=== PATIENT | female | born 1930 | race Caucasian/White ===

== ENCOUNTER 2016-10-11 16:39 | Inpatient (IN) | payer MEDICARE, MEDICAID ==
[~2016-10-11] VITALS: Ht 165.1 cm; Wt 76.0 kg
--- NOTE | ~2016-10-11 | ECH ---
Transthoracic Echocardiography Report (TTE) Demographics Patient Name ARMINDA ALONSO Date of Study 10/13/2016 Patient Number [id number] Visit Number [id number] Date of 1930 Room Number 523 Accession Number [id number] Gender Female Age 86 year(s) Referring Yoko Gonzalez Habilitation Training Specialist Clarissa Rivera [facility] Physician Physician Interpreting King Robert Waldrop MD City Controller Physician Supervising Ordering Physician Yoko Gonzalez MD/P Nurse Stress Manager Chemistry Conclusions Summary Technically fair exam. The estimated left ventricular ejection fraction is 60-65%. Moderate left ventricular hypertrophy. Normal right ventricle structure and function. The left atrium is severely dilated by LA volume index measurement. There is no evidence of patent foramen ovale or atrial septal defect by color Doppler. The interatrial septum appears mildly aneurysmal. Moderate mitral valve stenosis. The mean gradient is 9 mmHg. Trivial mitral regurgitation by color Doppler. Mild tricuspid regurgitation by color Doppler. Estimated pulmonary pressures within normal range. Trivial pulmonic valve regurgitation by color Doppler. Procedure Type of Study TTE procedure:Echo Complete SF. Procedure Date Date: 10/13/2016 Start: 03:20 PM Technical Quality: Fair due to body habitus. Indications:Congestive heart failure, Atrial fibrillation and pre surgical clearance. Additional Indications:evaluate pulmonary hypertension Appropriate Use Criteria: 9 Height: 65 inches Weight: 162 pounds BSA: 1.81 m Rhythm: Atrial fibrillation HR: 73 bpm BP: 130/56 mmHg M-Mode/2D Measurements LV Diastolic Dimension: 4.29 cm LV Systolic Dimension: 2.3 cm LV Septum Diastolic: 1.42 cm LV PW Diastolic: 1.39 cm AO Root Dimension: 2.63 cm Cardiac Output: 5.12 l/min LA Dimension: 5.11 cm Cardiac Index: 2.83 l/min*m LA volume index: 61 ml/m LVOT: 1.83 cm RV Base: 2.97 cm LVOT VTI: 26.68 cm RV Length: 7.2 cm LV Stroke volume: 70.14 ml TAPSE: 2.1 cm LV Stroke volume index: 38.75 ml/m TDI-S': 10 cm/s Doppler Measurements AV Peak Velocity: 1.72 m/s MV Peak E-Wave: 2.15 m/s AV Peak Gradient: 11.83 mmHg MV Peak A-Wave: 2.12 m/s AV Mean Gradient: 7.28 mmHg MV E/A Ratio: 1.02 LVOT Peak Velocity: 1.22 m/s MV P1/2t: 98.8 msec AV Area (Continuity):1.68 cm TR Velocity:2.66 m/s MV Deceleration Time: 356.4 msec TR Gradient:28.22 mmHg MV Area (PHT): 2.23 cm Estimated RAP:5 mmHg PV Peak Velocity: 1.12 m/s Estimated RVSP: 33 mmHg PV Peak Gradient: 5.06 mmHg Estimated PASP: 33.22 mmHg RA Area: 14.39 cm Findings Left Ventricle The left ventricle is normal in size . Moderate left ventricular hypertrophy. Diastolic function indeterminate due to patient's arrhythmia. Right Ventricle Normal right ventricle structure and function. Left Atrium The left atrium is severely dilated by LA volume index measurement. There is no evidence of patent foramen ovale or atrial septal defect by color Doppler. The interatrial septum appears mildly aneurysmal. Right Atrium Normal right atrial size. Mitral Valve Moderate mitral valve stenosis. The mean gradient is 9 mmHg. Trivial mitral regurgitation by color Doppler. Aortic Valve The aortic valve is mildly sclerotic. Tricuspid Valve Normal appearing tricuspid valve. Mild tricuspid regurgitation by color Doppler. Estimated pulmonary pressures within normal range. Pulmonic Valve Normal pulmonic valve structure and function. Trivial pulmonic valve regurgitation by color Doppler. Pericardial Effusion No evidence of pericardial effusion. Miscellaneous Visualized portions of the aortic root and ascending aorta appear normal in size. Pleural Effusion No evidence of pleural effusion. Signature
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
--- NOTE | 2016-10-19 10:19 | HP ---
ADMIT: 10/11/2016 RM/LOC: 523 [facility] MR#: [id number] [address] [address] [place] [address] History and Physical SEX: F AGE: 86 : 1930 DATE OF SERVICE: ADDENDUM: MEDICATIONS: 1. Tylenol 325 two tabs every 4 hours as needed for pain. 2. Advair Diskus 2 times a day. 3. Amlodipine 10 mg at night. 4. Artificial Tears every 6 hours as needed. 5. Ativan 0.5 mg b.i.d. 6. Clotrimazole-betamethasone lotion 1%/0.05% apply to the ears bilaterally at bedtime every Sunday, Sunday, Sunday. 7. Coumadin 3 mg tablets Sunday, Sunday, Sunday, , Sunday, Sunday. 8. Escitalopram 20 mg a.m. 9. Fentanyl patch 75 mcg an hour one patch every 72 hours for pain. 10.Furosemide 40 mg q.a.m. 11.Guaifenesin ER tablet extended release 12-hour, 600 mg two times a day. 12.Icy Hot for breakthrough pain b.i.d. p.r.n. 13.Lamotrigine 50 mg at bedtime. 14.Levetiracetam 500 mg one tablet two times a day for epilepsy. 15.Lorazepam 0.5 mg q.12 hours as needed. 16.Maalox 30 mL every 12 hours as needed. 17.Metoprolol 25 mg b.i.d. 18.Miconazole nitrate cream 2% for rash under both breasts given today. 19.Milk of magnesia 30 mL as needed every 24 hours. 20.MiraLax 17 g in the morning. 21.Nitroglycerin patch 24 hours, apply one patch in the morning for heart failure. 22.Nitroglycerin tab 0.4 mg sublingually every 5 minutes as needed for chest pain. ADMIT: 10/11/2016 RM/LOC: 523 [facility] MR#: [id number] [address] [address] ALONSO, [place] [address] History and Physical SEX: F AGE: 86 : 1930 23.Nystatin powder every 12 hours for breast rash. 24.Oxycodone/acetaminophen tablets 5/325 one tablet four times a day. 25.Potassium chloride extended release 10 mEq in the morning. 26.PreserVision Lutein capsule one capsule by mouth two times a day. 27.Promethazine HCL 6.25/5 mL, 10 mL every 6 hours as needed for cough. 28.Ranitidine 150 mg one tablet by mouth two times a day. 29.Restasis drops in both eyes two times a day. 30.Senna one tab two times a day. 31.Simvastatin 10 mg at bedtime. 32.Thera-M one tablet in the morning. 33.Vaseline gel to nostrils q.12 hours as needed for dry nares. 34.Voltaren gel transdermally four times a day for pain. Davina Allen MD Resident / Mark Babcock MD / marco JOB #: [id number] CC: Mark Babcock, Attending Physician Mark Babcock, Family Physician
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
[2016-10-20] MEDS ORDERED: COUMADIN DPS3 MG PO (15:37)
[2016-10-20] MEDS ORDERED: ATIVAN-DPS0.5 MG PO (15:37)
[2016-10-20] MEDS ORDERED: LASIX DPS40 MG PO (15:38)
[2016-10-20] MEDS ORDERED: LEXAPRO DPS20 MG PO (15:38)
[2016-10-20] MEDS ORDERED: LOPRESSOR DPS50 MG PO (15:38)
[2016-10-20] MEDS ORDERED: MICRO-K DPS10 MEQ PO (15:38)
[2016-10-20] MEDS ORDERED: LAMICTAL DPS25 MG PO (15:38)
[2016-10-20] MEDS ORDERED: KEPPRA DPS500 MG PO (15:38)
[2016-10-20] MEDS ORDERED: MUCINEX600 MG PO (15:39)
[2016-10-20] MEDS ORDERED: MIRALAX PACKET17 GM PO (15:39)
[2016-10-20] MEDS ORDERED: PERCOCET 5 DPS1 TAB PO (15:39)
[2016-10-20] MEDS ORDERED: PEPCID DPS20 MG PO (15:39)
[2016-10-20] MEDS ORDERED: DULERA 200/58.8 GM IH (15:40)
[2016-10-20] MEDS ORDERED: ZOCOR DPS10 MG PO (15:40)
[2016-10-20] MEDS ORDERED: DUONEB DPS3 ML IH (15:40)
[2016-10-20] MEDS ORDERED: THERAPEUTIC MUL1 TA1 PO (15:40)
[2016-10-20] MEDS ORDERED: RESTASIS1 EACH OU (15:40)
[2016-10-20] MEDS ORDERED: DURAGESIC DPS100 MCG TP (15:41)
[2016-10-20] MEDS ORDERED: LOVENOX DP40 MG/0.4 SQ (15:41)
[2016-10-20] MEDS ORDERED: LOTRISONE DPS45 GM TP (15:41)
[2016-10-20] MEDS ORDERED: MYCOSTATIN PWD15 GM TP (15:42)
[2016-10-20] MEDS ORDERED: MONISTAT DERM28.4 GM TP (15:42)
[2016-10-20] MEDS ORDERED: [UNRECOGNIZED DRUG - OTHER] TP (15:42)
[2016-10-20] MEDS ORDERED: VOLTAREN 1% GE100 GM TP (15:43)
[2016-10-20] MEDS ORDERED: PHENERGAN6.25 MG/5 PO (15:44)
[2016-10-20] MEDS ORDERED: ZANTAC DPS150 MG PO (15:45)
[2016-10-20] MEDS ORDERED: [UNRECOGNIZED DRUG - OTHER] TP (15:45)
[2016-10-20] MEDS ORDERED: OMNICEF DPS300 MG PO (15:46)
--- NOTE | 2016-10-23 09:01 | CO ---
ADMIT: 10/11/2016 RM/LOC: 523 [facility] MR#: [id number] [address] [address] [place] [address] Consultation SEX: F AGE: 86 : 1930 DATE OF CONSULTATION: 10/12/2016 ATTENDING PHYSICIAN: Mark Babcock CONSULTING PHYSICIAN: Alexis Oseguera MD ADDENDUM: I did place Arminda back into a well-padded long-arm posterior splint for protection until she is ready for surgery. She is much more comfortable in that, and after the application of a new splint, she no longer had any neurologic symptoms and nerve function had completely recovered. Alton Parham PA-C / Alexis Oseguera MD / marco JOB #: [id number] CC: Mark Babcock, Attending Physician Mark Babcock, Family Physician
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
--- NOTE | 2016-11-14 21:06 | OR ---
ADMIT: 10/11/2016 RM/LOC: 523 [facility] MR#: [id number] [address] [address] [place] [address] Operative/Delivery Room Report SEX: F AGE: 86 : 1930 SURGERY DATE: 10/16/2016 SURGEON: Alexis Oseguera MD PREOPERATIVE DIAGNOSES: 1. Right displaced olecranon fracture. 2. Right acute distal radius fracture on top of old distal radius malunion. 3. Osteoporosis. PROCEDURES: 1. Right olecranon open reduction and internal fixation with tension band cable. 2. Right wrist closed reduction and splinting. BEARING MAKER: CANDI Vizcarra COMPLICATIONS: None. BLOOD LOSS: 25 mL. DESCRIPTION OF PROCEDURE: The patient was taken to the operating room, received a general anesthetic. Right arm prepped and draped in standard fashion. She had a skin tear along the more lateral aspect of the elbow, but not in the incisional area. She did have a very thin skin though. We exsanguinated the limb and inflated tourniquet, made a posterior incision, made full-thickness skin flaps, opened up and removed the old fracture hematoma. At that point, we extended the deep fascia distally along the ulnar border. We made a transverse drill hole distally through the ulnar for future cable passing. We then made a small drill hole dorsally to place reduction clamp. We reduced the olecranon fragment into an anatomic position with large clamp. At that point, we took 2 long 0.62 K-wires through the tip of the olecranon up into the anterior cortex for better fixation. At that point, a lateral image confirmed good reduction of the olecranon fragment and good K- wire placement. At that point, we used an angiocatheter needle, placed a 1 mm cable along the border of the K-wires and made a tension band [id number] wire, tensioned this appropriately. She was very osteoporotic, so we did not over tension it. At that point, we bent our K-wires at a right angle, cut ADMIT: 10/11/2016 RM/LOC: 523 [facility] MR#: [id number] [address] [address] ALONSO, [place] [address] Operative/Delivery Room Report SEX: F AGE: 86 : 1930 them off, rotated them, and buried the tip of the K-wires into the olecranon and triceps tendon. At that point, AP and lateral images confirmed the anatomic reduction of the olecranon. Good hardware placement. We then irrigated out the wounds. Closed the deep tissue with 0 Vicryl, subcutaneous with 2-0 Vicryl, placed margie in the skin. We applied Xeroform over the incision and small skin tear, applied sterile dressings. We deflated the tourniquet. At that point, we placed a stockinette over the arm. We then did a closed reduction of the distal radius fracture and placed her in a long-arm splint. At that point, we had acceptable alignment of the distal radius on fluoroscopy. She had the prior malunion. At that point, she was awakened from anesthesia. She was taken to recovery room in stable condition with no complications. Alexis Oseguera MD/ marco JOB #: [id number] CC: Mark Babcock, Attending Physician Mark Babcock, Family Physician
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
== END 2016-10-19 15:34 | DRG 511 ==
LOC: ER 16:39 → 5MS 19:15
PROVIDERS: ADMIT Family Medicine
DX: S52.021A Displaced fracture of olecranon process without intraarticular extension of right ulna, initial encounter for closed fracture (principal); S32.82XA Multiple fractures of pelvis without disruption of pelvic ring, initial encounter for closed fracture; I11.0 Hypertensive heart disease with heart failure; I50.9 Heart failure, unspecified; F03.90 Unspecified dementia, unspecified severity, without behavioral disturbance, psychotic disturbance, mood disturbance, and anxiety; D62 Acute posthemorrhagic anemia; J44.9 Chronic obstructive pulmonary disease, unspecified; S52.509P Unspecified fracture of the lower end of unspecified radius, subsequent encounter for closed fracture with malunion; N39.0 Urinary tract infection, site not specified; S52.501A Unspecified fracture of the lower end of right radius, initial encounter for closed fracture; Y33.XXXA Other specified events, undetermined intent, initial encounter; Y93.89 Activity, other specified; R79.1 Abnormal coagulation profile; I48.91 Unspecified atrial fibrillation; S80.11XA Contusion of right lower leg, initial encounter; D63.8 Anemia in other chronic diseases classified elsewhere; B96.20 Unspecified Escherichia coli [E. coli] as the cause of diseases classified elsewhere; M75.101 Unspecified rotator cuff tear or rupture of right shoulder, not specified as traumatic; Y92.129 Unspecified place in nursing home as the place of occurrence of the external cause; M81.0 Age-related osteoporosis without current pathological fracture; M85.80 Other specified disorders of bone density and structure, unspecified site; M48.06 Spinal stenosis, lumbar region; M19.011 Primary osteoarthritis, right shoulder; F01.50 Vascular dementia, unspecified severity, without behavioral disturbance, psychotic disturbance, mood disturbance, and anxiety; I25.10 Atherosclerotic heart disease of native coronary artery without angina pectoris; E78.5 Hyperlipidemia, unspecified; Z86.711 Personal history of pulmonary embolism; Z86.73 Personal history of transient ischemic attack (TIA), and cerebral infarction without residual deficits; Z95.1 Presence of aortocoronary bypass graft; Z87.891 Personal history of nicotine dependence; Z79.01 Long term (current) use of anticoagulants

== ENCOUNTER 2016-12-03 08:56 | Emergency (ER) | payer MEDICARE, MEDICAID ==
[~2016-12-03 08:56] MED LIST: ATIVAN-DPS0.5 MG PO; COUMADIN DPS3 MG PO; DULERA 200/58.8 GM IH; DUONEB DPS3 ML IH; DURAGESIC DPS100 MCG TP; KEPPRA DPS500 MG PO; LAMICTAL DPS25 MG PO; LASIX DPS40 MG PO; LEXAPRO DPS20 MG PO; LOPRESSOR DPS50 MG PO; LOTRISONE DPS45 GM TP; LOVENOX DP40 MG/0.4 SQ; MICRO-K DPS10 MEQ PO; MIRALAX PACKET17 GM PO; MONISTAT DERM28.4 GM TP; MUCINEX600 MG PO; MYCOSTATIN PWD15 GM TP; OMNICEF DPS300 MG PO; PEPCID DPS20 MG PO; PERCOCET 5 DPS1 TAB PO; PHENERGAN6.25 MG/5 PO; RESTASIS1 EACH OU; THERAPEUTIC MUL1 TA1 PO; VOLTAREN 1% GE100 GM TP; ZANTAC DPS150 MG PO; ZOCOR DPS10 MG PO; [UNRECOGNIZED DRUG - OTHER] TP; [UNRECOGNIZED DRUG - OTHER] TP
--- NOTE | 2016-12-03 17:54 | ER ---
ADMIT: 12/03/2016 RM/LOC: ER [facility] MR#: [id number] [address] [address] [place] [address] Emergency Room Report SEX: F AGE: 86 : 1930 DATE: 12/03/2016 ADDENDUM: An 86-year-old white female with dementia coming in with left thigh pain. Evidently, she has superficial thrombus there. She is anticoagulated and in fact she is well anticoagulated with an INR greater than 6. We are sending her back to the half-way. We will hold her Coumadin. Call Dr. Shelton in tomorrow, so he can adjust how he wants the Coumadin dosage. CONDITION ON DISCHARGE: Good. João Hernandez MD/ marco JOB #: [id number] CC: João Hernandez MD, Attending Physician Mark Babcock MD, Family Physician
== END 2016-12-03 09:47 | disposition home or self-care (01) ==
LOC: ER 08:56
DX: I80.02 Phlebitis and thrombophlebitis of superficial vessels of left lower extremity (principal); R79.1 Abnormal coagulation profile; F03.90 Unspecified dementia, unspecified severity, without behavioral disturbance, psychotic disturbance, mood disturbance, and anxiety; G40.909 Epilepsy, unspecified, not intractable, without status epilepticus